=== PATIENT | female | born 1970 | race Caucasian/White ===

== ENCOUNTER 2018-11-21 18:33 | Emergency (ER) | payer OTHER ==
[~2018-11-21] VITALS: Ht 162.6 cm; Wt 86.2 kg
--- OUTSIDE RECORDS SUMMARY | ~2018-11-21 | XMS ---
Demographics + + + | Address | [address] | | | [place] [address] | + + + | Preferred Language | Unknown | + + + | Marital Status | Unknown | + + + | Mandaen Affiliation | Unknown | + + + | Race | Unknown | + + + | Ethnic Group | Unknown | + + + Author + + + | Author | [facility] | + + + | Organization | [facility] | + + + | Address | [address] | | | [place] [address] | + + + | Phone | | + + + Care Team Providers + + + + | Care Convenience Store Manager Name | Role | Phone | + + + + Unavailable | Unavailable | + + + + PROBLEMS + + + + + + + + | Type | Condition | ICD9-CM | SNC27-CY | Onset | Condition | SNOMED | | | | Code | Code | Dates | Status | Code | + + + + + + + + | Problem | Headache | 784.0 | | | Active | 99223667 | + + + + + + + + | Problem | Depressive | 311 | | | Active | 48321416 | | | disorder | | | | | | | | NOS | | | | | | + + + + + + + + | Problem | Insomnia | 780.52 | | | Active | 831375060 | + + + + + + + + | Problem | Depression | 300.4 | | | Active | 822943729 | | | with | | | | | | | | anxiety | | | | | | + + + + + + + + | Problem | Degenerati | 722.4 | | | Active | 21099489 | | | ve disc | | | | | | | | disease, | | | | | | | | cervical | | | | | | + + + + + + + + | Problem | Cervical | 723.4 | | | Active | 85049663 | | | radiculiti | | | | | | | | s | | | | | | + + + + + + + + | Problem | Chronic | 338.4 | | | Active | 110674379 | | | pain | | | | | | | | syndrome | | | | | | + + + + + + + + | Problem | Degenerati | 722.52 | | | Active | 89129556 | | | ve disc | | | | | | | | disease, | | | | | | | | lumbar | | | | | | + + + + + + + + | Problem | Lumbar | 724.4 | | | Active | 716807571 | | | Radiculopa | | | | | | | | thy | | | | | | + + + + + + + + | Assessment | Postoperat | K91.89 | | 15 June, | Active | | | | chico | | | 2017 | | | | | surgical | | | | | | | | complicati | | | | | | | | on | | | | | | | | involving | | | | | | | | digestive | | | | | | | | system | | | | | | + + + + + + + + | Problem | Fatigue | 780.79 | | | Active | 88751273 | + + + + + + + + | Problem | Hyperlipid | 272.4 | | | Active | 64253996 | | | emia NOS | | | | | | + + + + + + + + | Assessment | Status | Z98.84 | | 02 July, | Active | 747786048 | | | post | | | 2016 | | | | | gastric | | | | | | | | banding | | | | | | | | surgery | | | | | | + + + + + + + + | Problem | ROUTINE | V72.31 | | | Active | [id number] | | | DOG POUND ATTENDANT | | | | | 9101 | | | EXAMINATIO | | | | | | | | N | | | | | | + + + + + + + + | Assessment | Encounter | Z48.89 | | 15 June, | Active | | | | for post | | | 2016 | | | | | surgical | | | | | | | | wound | | | | | | | | check | | | | | | + + + + + + + + | Problem | Dizziness | 780.4 | | | Active | [id number] | + + + + + + + + ALLERGIES + + + + +---------+ | Substance | Reaction | Event Type | Date | Status | + + + + +---------+ | N.K.D.A. | Unknown | Non Drug | June, | Unknown | | | | Allergy | | | + + + + +---------+ SOCIAL HISTORY No smoking Hx information available PLAN OF CARE + +---------+ | Activity | Details | + +---------+ +---+ | | +---+ + + + | Pending Test | Aerobe ID + Suscept | + + + | | prn,Reason: | + + + VITAL SIGNS + + + + | Height | 64 in | 2016-07-02 | + + + + | Weight | 259.4 lbs | 2016-07-02 | + + + + | BMI | 44.52 kg/m2 | 2016-07-02 | + + + + | Temperature | 97.9 degrees Fahrenheit | 2016-07-02 | + + + + | Heart Rate | 67 /min | 2016-07-02 | + + + + | Blood pressure systolic | 124 mm Hg | 2016-07-02 | + + + + | Blood pressure diastolic | 86 mm Hg | 2016-07-02 | + + + + MEDICATIONS No Known Medications RESULTS No Results PROCEDURES + + + + + | Procedure | Date Ordered | Related Diagnosis | Body Site | + + + + + | Est Level III | July 02, 2016 | | | | Intermediate | | | | + + + + + | DSCHRG MED/CURRENT | July 02, 2016 | | | | MED MERGE | | | | + + + + + | DOC MEDS VERIFIED | July 02, 2016 | | | | W/PT OR RE | | | | + + + + + IMMUNIZATIONS No Known Immunizations"
--- OUTSIDE RECORDS SUMMARY | ~2018-11-21 | XMS | Clinical Summary ---
Demographics + + + | Address | [address] | | | [place] [address] | + + + | Home Phone | | + + + | Preferred Language | Unknown | + + + | Marital Status | Unknown | + + + | Zoroastrianism Affiliation | Unknown | + + + | Race | Unknown | + + + | Ethnic Group | Unknown | + + + Author + + + | Author | [facility] | | | and [place] | + + + | Organization | [facility] | | | and [place] | + + + | Address | Unknown | + + + | Phone | Unavailable | + + + Support + + +---------+ + | Name | Relationship | Address | Phone | + + +---------+ + | None,Listed | ECON | Unknown | | + + +---------+ + Care Team Providers + +------+ + | Care Official Court Reporter Name | Role | Phone | + +------+ + | Geo Curiel NP | PCP | Unavailable | + +------+ + Allergies Not on File Medications Not on file Active Problems Not on file Social History + +-------+ +--------+------+ | Tobacco Use | Types | Packs/Day | Years | Date | | | | | Used | | + +-------+ +--------+------+ | Never Assessed | | | | | + +-------+ +--------+------+ + + + | Sex Assigned at | Date Recorded | | | | + + + | Not on file | | + + + + + + + | Job Start Date | Occupation | Industry | + + + + | Not on file | Not on file | Not on file | + + + + + + + + | Travel History | Travel Start | Travel End | + + + + + + | No recent travel history available. | + + Last Filed Vital Signs Not on file Plan of Treatment + + + + + | Health Maintenance | Due Date | Last Done | Comments | + + + + + | Vaccine: | | | | | Dtap/Tdap/Td (1 - | 8 | | | | Tdap) | | | | + + + + + | Cervical Cancer | | | | | Screening (Pap) | 9 | | | + + + + + | Breast Cancer | | | | | Screening | 4 | | | + + + + + | Vaccine: Influenza | | | | | (#1) | 9 | | | + + + + + Results Not on filefrom Last 3 Months Insurance + +--------+ +--------+ +---------+------+ | Payer | Benefi | Subscriber | Effect | Phone | Address | Type | | | t Plan | ID | [place] | | | | | | / | | Dates | | | | | | Group | | | | | | + +--------+ +--------+ +---------+------+ | [employer] | PA[employer]RUN[employer] | [id number] | | [phone] | | PPO | | | CSOURC | | 013-Pr | 2 | | | | | E | | esent | | | | | | FIRST | | | | | | | | CHOICE | | | | | | + +--------+ +--------+ +---------+------+ + +--------+ +--------+ + + | Guarantor Name | Accoun | Relation to | Date | Phone | Billing Address | | | t Type | Patient | of | | | | | | | | | | + +--------+ +--------+ + + | Alberta Garcia | Person | Self [birth year] | [address] | | e [place] | al/Fam | | 1970 | [phone] | [place] [address] | | | billy | | | 0 (Home) | | + +--------+ +--------+ + + Advance Directives Patient has advance care planning documents on file. For more information, please contact:[facility] [address]"
--- OUTSIDE RECORDS SUMMARY | ~2018-11-21 | XMS | Clinical Summary ---
Demographics + + + | Address | [address] | | | [place] [address] | + + + | Home Phone | | + + + | Preferred Language | Unknown | + + + | Marital Status | Unknown | + + + | Restorationist Affiliation | Unknown | + + + | Race | Unknown | + + + | Ethnic Group | Unknown | + + + Author + + + | Author | [facility] | | | and [place] | + + + | Organization | [facility] | | | and [place] | + + + | Address | Unknown | + + + | Phone | Unavailable | + + + Support + + +---------+ + | Name | Relationship | Address | Phone | + + +---------+ + | None,Listed | ECON | Unknown | | + + +---------+ + Care Team Providers + +------+ + | Care Hotel Houseman Name | Role | Phone | + [...] +--------+ +---------+------+ | [employer] | PA[employer] | [id number] | | [phone] | | PPO | [...] L | al/Fam | | 1970 | [phone] | [place] [address] | | | billy | | | 0 (Home) | | + +--------+ +--------+ + + Advance Directives Patient has advance care planning documents on file. For more information, please contact:[facility] [place] [address]"
--- OUTSIDE RECORDS SUMMARY | ~2018-11-21 | XMS ---
Demographics + + + | Address | [address] | | | [place] [address] | + + + | Preferred Language | Unknown | + + + | Marital Status | Unknown | + + + | Anglican Affiliation | Unknown | + + + | Race | Unknown | + + + | Ethnic Group | Unknown | + + + Author + + + | Author | [facility] | + + + | Organization | [facility] | + + + | Address | [address] | | | [place] [address] | + + + | Phone | | + + + Care Team Providers + + + + | Care Budder Name | Role | Phone | + + + + Unavailable | Unavailable | + + + + PROBLEMS +---------+ + + +--------+ + + | Type | Condition | ICD9-CM | IMD71-WD | Onset | Condition | SNOMED | | | | Code | Code | Dates | Status | Code | +---------+ + + +--------+ + + | Problem | Headache | 784.0 | | | Active | 44239261 | +---------+ + + +--------+ + + | Problem | Depressive | 311 | | | Active | 76583141 | | | disorder | | | | | | | | NOS | | | | | | +---------+ + + +--------+ + + | Problem | Insomnia | 780.52 | | | Active | 515573816 | +---------+ + + +--------+ + + | Problem | Fatigue | 780.79 | | | Active | 39422869 | +---------+ + + +--------+ + + | Problem | Hyperlipid | 272.4 | | | Active | 61063574 | | | emia NOS | | | | | | +---------+ + + +--------+ + + | Problem | ROUTINE | V72.31 | | | Active | 0935433323 | | | LACER AND TIER | | | | | 9101 | | | EXAMINATIO | | | | | | | | N | | | | | | +---------+ + + +--------+ + + | Problem | Dizziness | 780.4 | | | Active | 357402756 | +---------+ + + +--------+ + + | Problem | Depression | 300.4 | | | Active | 361453986 | | | with | | | | | | | | anxiety | | | | | | +---------+ + + +--------+ + + | Problem | Degenerati | 722.4 | | | Active | 27403655 | | | ve disc | | | | | | | | disease, | | | | | | | | cervical | | | | | | +---------+ + + +--------+ + + | Problem | Cervical | 723.4 | | | Active | 82671512 | | | radiculiti | | | | | | | | s | | | | | | +---------+ + + +--------+ + + | Problem | Chronic | 338.4 | | | Active | 846887652 | | | pain | | | | | | | | syndrome | | | | | | +---------+ + + +--------+ + + | Problem | Degenerati | 722.52 | | | Active | 11867956 | | | ve disc | | | | | | | | disease, | | | | | | | | lumbar | | | | | | +---------+ + + +--------+ + + | Problem | Lumbar | 724.4 | | | Active | 604721095 | | | Radiculopa | | | | | | | | thy | | | | | | +---------+ + + +--------+ + + ALLERGIES Unknown Allergies SOCIAL HISTORY No smoking Hx information available PLAN OF CARE VITAL SIGNS MEDICATIONS + + + + + + + +--------+ | Medicati | Instruct | Dosage | Frequenc | Start | End Date | Duration | Status | | on | ions | | y | Date | | | | + + + + + + + +--------+ | Bactrim | Orally | 1 tablet | 12h | 18 June, | 28 June, | 10 | Active | | DS | Twice a | | | 2017 | 2017 | day(s) | | | 800-160 | day | | | | | | | | MG | | | | | | | | + + + + + + + +--------+ RESULTS No Results PROCEDURES No Known procedures IMMUNIZATIONS No Known Immunizations"
[2018-11-21] MEDS ORDERED: PROGESTERONE100 MG PO (18:51)
[2018-11-21] MEDS ORDERED: FOLGARD TABLET1 EAC1 PO (18:52)
== END 2018-11-21 22:23 | disposition home or self-care (01) ==
LOC: ED 18:33
DX: K52.9 Noninfective gastroenteritis and colitis, unspecified (principal); Z79.899 Other long term (current) drug therapy
CPT/HCPCS: 74177; 80053; 81001; 83690; 85025; 96361; 96374; 96375; 99284-25; J1170; J2405; J7030; Q9967

== ENCOUNTER 2020-05-05 07:48 | Day surgery (SDC) | payer OTHER ==
[~2020-05-05] VITALS: Ht 162.6 cm; Wt 93.0 kg
[~2020-05-05 07:48] MED LIST: FOLGARD TABLET1 EAC1 PO; PROGESTERONE100 MG PO
[2020-05-05] MEDS ORDERED: ESTRACE1 MG PO (08:10)
[2020-05-05] MEDS ORDERED: BIOTIN 800 MCG1 EACH PO (08:11)
[2020-05-05] MEDS ORDERED: OMEPRAZOLE20 MG PO (08:11)
--- NOTE | 2020-05-05 09:29 | NUR ---
05/05/20 0929 Ailyn Pka 0923-PATIENT ARRIVED TO PACU ON 2L NC AWAKE LAYING LEFT LATERAL. DENIES PAIN OR NAUSEA. ABDOMEN SOFT. IVF INFUSING. PATIENT ENCOURAGED TO PASS GAS.
--- NOTE | 2020-05-06 06:33 | OR ---
[facility] [address] [place], [place] [address] Signed DATE OF OPERATION: 05/05/2020 SURGEON: Stephane Pollock MD PREOPERATIVE DIAGNOSIS: Sister with colon polyps at age 52. POSTOPERATIVE DIAGNOSES: 1. 5 mm polyp in mid right colon. 2. 4 mm polyp at 100 cm. 3. Minimal sigmoid diverticulosis. PROCEDURE: Colonoscopy with hot biopsy. ESTIMATED BLOOD LOSS: None. INDICATIONS: Saige is a 50-year-old female asked to see me for a colonoscopy. She explained that her sister just had colonic polyps removed at age 52. She was asked to return by the endoscopist in one year. Zoila herself has no lower GI complaints. No family history of colon cancer to her knowledge. In the office, I gave her a pamphlet on colonoscopy and we reviewed that together along with the risks including, but not limited to gas bloating, crampy abdominal pain, bleeding, perforation requiring surgery, and missed diagnosis. She also understands the need for IV conscious sedation. She had expressed understanding and wished to proceed. PROCEDURE NOTE: Zaria was taken into our endoscopy suite and placed in the left lateral decubitus position. She was given a total of 5 mg of Versed and 175 mcg of fentanyl. A digital rectal exam was performed and this was unremarkable. The adult colonoscope was introduced and advanced all around into the cecum under direct visualization of camera without difficulty. Her prep was good. After her gastric sleeve procedure, she told me she does not drink fluids all that well. She said she has never been want to drink much fluids. Nevertheless, she had a decent bowel prep. We could easily see the appendiceal orifice and the ileocecal valve. The scope was then slowly withdrawn. We took pictures throughout for photodocumentation. She had two tiny polyps removed as above. She has a few diverticula in the sigmoid colon. They were average in size, few in number, and scattered about. The rectum itself was unremarkable. Upon retroflexion of scope, there Electronically Signed By: STEPHANE POLLOCK MD 05/06/20 0633 PATIENT NAME: SAIGE ORNELAS OPERATIVE REPORT DATE OF : 68 REPORT #: [id number] PHYSICIAN: STEPHANE POLLOCK MD PCP: BAYLEE FRANKS REPORT IS CONFIDENTIAL AND NOT TO BE RELEASED WITHOUT AUTHORIZATION [facility] [address] [place] [address] Signed was no additional pathology noted above the anal canal. After this, the gas was suctioned out and the colonoscope removed. Saige tolerated the procedure quite well. RECOMMENDATIONS: I will see Saige back in my office in 7 to 14 days to review her results. More than likely, she will need a 5-year rotation. Stephane Pollock MD ALB/ABBEYL /[id number] cc: LENI Oreilly MD Copies: PAPA MAGALLANES PA-C, ANDREW L MD ~ Electronically Signed By: STEPHANE POLLOCK MD 05/06/20 0633 PATIENT NAME: JOHNSONSAIGE E[place] OPERATIVE REPORT DATE OF : 68 REPORT #: [id number] PHYSICIAN: STEPHANE POLLOCK MD PCP: BAYLEE FRANKS REPORT IS CONFIDENTIAL AND NOT TO BE RELEASED WITHOUT AUTHORIZATION
--- NOTE | 2020-05-06 13:53 | PATH ---
[facility] [address] [place], [place] [address] Signed SPECIMEN(S): A ASCENDING COLON POLYP SPECIMEN(S): B COLON POLYP SPECIMEN SOURCE: A. ASCENDING COLON POLYP B. COLON POLYP CLINICAL HISTORY: Family history of polyps. Screening. MICROSCOPIC DESCRIPTION: Histologic sections of all submitted blocks are examined by light microscopy. These findings, together with the gross examination, support the pathologic diagnosis. FINAL PATHOLOGIC DIAGNOSIS: A. Colon, ascending, polypectomy: - Sessile serrated polyp. B. Colon, polypectomy: - Cauterized fragment of colonic mucosa with no significant pathologic changes. BRP:cml:C2NR GROSS DESCRIPTION: Two specimens are received in two containers, labeled "CW." A. The specimen, labeled "CW, ascending colon polyp," is received in formalin and consists of one wallis soft tissue fragment that measures 0.2 cm in greatest dimension. The specimen is entirely submitted in cassette (A1). B. The specimen, labeled "CW, colon polyp at 100 cm," is received in formalin and consists of two wallis soft tissue fragment(s) that measure 0.2-0.3 cm in greatest dimension. The specimen is entirely submitted in cassette (B1). JS (under the direct supervision of a pathologist) The Gross Description was prepared using a voice recognition system. The report was reviewed for accuracy; however, sound-alike word errors, addition and/or deletions may occur. If there is any question about this report, please contact Client Services. PERFORMING LABORATORY: The technical component was performed by [facility], [address] [place] [id number] (Guest Services Manager: Jocelyn Pablo MD; CLIA# [id number]). PATIENT NAME: SAIGE ORNELAS PATHOLOGY DATE OF : 68 REPORT #: [id number] PHYSICIAN: ROSE MARY PATHOLOGY PCP: BAYLEE FRANKS REPORT IS CONFIDENTIAL AND NOT TO BE RELEASED WITHOUT AUTHORIZATION [facility] [address] [place], [place] [address] Signed Professional interpretation was performed by [facility], [address] [address] (CLIA# [id number]). Diagnostician: Yogi Tamez MD Pathologist Electronically Signed 05/06/2020 Copies: ~ PATIENT NAME: SAIGE ORNELAS PATHOLOGY DATE OF : 68 REPORT #: [id number] PHYSICIAN: ROSE MARY MAY PCP: BAYLEE FRANKS REPORT IS CONFIDENTIAL AND NOT TO BE RELEASED WITHOUT AUTHORIZATION
== END 2020-05-05 09:55 | disposition home or self-care (01) ==
LOC: DS 07:48 → OPS 07:48 → DS 09:00 → OPS 09:00
PROVIDERS: ATTEND Colon & Rectal Surgery
PROC: 0DBF8ZZ Excision of Right Large Intestine, Via Natural or Artificial Opening Endoscopic (ICD-10-PCS; principal; 2020-05-05 09:00)
DX: Z12.11 Encounter for screening for malignant neoplasm of colon (principal); D12.2 Benign neoplasm of ascending colon; K63.5 Polyp of colon; K57.30 Diverticulosis of large intestine without perforation or abscess without bleeding; K21.9 Gastro-esophageal reflux disease without esophagitis; E66.9 Obesity, unspecified; E55.9 Vitamin D deficiency, unspecified; J45.909 Unspecified asthma, uncomplicated; Z83.71 Family history of colonic polyps; Z98.84 Bariatric surgery status; Z68.32 Body mass index [BMI] 32.0-32.9, adult
CPT/HCPCS: 99153; G0500; J2250; J3010; J7121

== ENCOUNTER 2024-04-07 09:14 | Day surgery (SDC) | payer OTHER ==
[~2024-04-07] VITALS: Ht 162.6 cm; Wt 92.1 kg
[~2024-04-07 09:14] MED LIST changes: +ADIPEX-P37.5 M1 PO; +BIOTIN 800 MCG1 EACH PO; +ESTRACE1 MG PO; +IBLOOD GLUCOSE TEST STRIP 1 EA TEST VI PRN; +LACTATED RINGER'S 1,000 ML IV SCH; +LIDOCAINE HCL 1% 5 ML SDV INJ ONE; +MIDAZOLAM HCL 5 MG/5 ML VIAL IV PRN; +MULTIVITAMIN1 EACH PO; +OMEPRAZOLE20 MG PO; +VITAMIN D21250 MCG PO; +fentaNYL citrate 100 MCG/2 ML VIAL IV PRN
[2024-04-07 09:33] VITALS: BP 122/80
[2024-04-07] MEDS ORDERED: OMEPRAZOLE40 MG PO (09:37)
[2024-04-07] MEDS ORDERED: fentaNYL citrate 100 MCG/2 ML VIAL ONE (10:22)
[2024-04-07] MEDS ORDERED: MIDAZOLAM HCL 5 MG/5 ML VIAL ONE (10:22)
--- NOTE | 2024-04-07 11:19 | NUR ---
04/07/24 1119 Eileen,Rebecca 1106 PT ARRIVED TO PACU ON 3L VIA NC, PT WAKES EASILY AND DENIES CONCERNS. VSS. PT EASILY FALLS BACK TO SLEEP, RESP EVEN AND UNLABORED. 1116 O2 TURNED OFF. 1117 MD AT BEDSIDE TALKING TO PT, MD CALLING .
[2024-04-07 11:29] VITALS: BP 137/84
--- NOTE | 2024-04-08 06:18 | OR ---
[facility] [address] [place], [place] [address] Signed DATE OF OPERATION: 04/07/2024 SURGEON: Stephane Pollock MD PREOPERATIVE DIAGNOSES: 1. Gastric sleeve 2017 ([place]). 2. Gastroesophageal reflux disease. 3. Parageusia. 4. Maternal grandfather with gastric cancer at age 62. POSTOPERATIVE DIAGNOSES: 1. Hiatal hernia (33-30 cm). 2. Gastroesophageal junction at 30 cm. 3. Mild diffuse gastritis. 4. Mild distal esophagitis. 5. Normal gastric sleeve anatomy. PROCEDURE: Esophagogastroduodenoscopy with CLOtest and biopsies of the antrum and the gastoesophageal junction. ESTIMATED BLOOD LOSS: None. INDICATIONS: Saige is a 54-year-old obese female, asked to see me for an upper endoscopy. She had a gastric sleeve performed in 2017 in [place]. She said it has been very successful. She lost 100 pounds. She has gained about 20 pounds back. She said she is feeling much better. She is using phentermine to help control her weight. She has had to use Pepcid and omeprazole for acid reflux issues. She says she had acid reflux before the gastric sleeve procedure. She cannot remember having a barium swallow or an upper endoscopy before the gastric sleeve was performed. She is now having parageusia with altered taste in her mouth. Basically, she tells me it tastes like poop. She says she had her tonsils removed previously. She does not complain specifically of her sinuses. Once she lost her weight, she gave up on the CPAP machine. We know that she has a maternal grandfather with gastric cancer at age 62. She has also been to the dentist who is worried that the acid reflux is wearing away the enamel on her teeth. She has no dysphagia. We had sent her for a barium swallow at the end of February 2024. She has the gastric sleeve anatomy with a moderate-sized hiatal hernia. Her esophageal motility was normal. She had severe reflux during the test. In the office, I had given her a Electronically Signed By: STEPHANE POLLOCK MD 04/08/24 0618 PATIENT NAME: SAIGE ORNELAS OPERATIVE REPORT DATE OF : 68 REPORT #: [id number] PHYSICIAN: STEPHANE POLLOCK MD PCP: BAYLEE FRANKS REPORT IS CONFIDENTIAL AND NOT TO BE RELEASED WITHOUT AUTHORIZATION [facility] [address] [place], [place] [address] Signed pamphlet on upper endoscopy. We had reviewed the nature of the test. There is risk including, but not limited to gas bloating, crampy abdominal pain, bleeding, perforation requiring surgery, and missed diagnosis. I have actually helped her with a colonoscopy back in 2020. She did well with 5 mg of Versed and 175 mcg of fentanyl. Thankfully, no laxatives are needed for upper endoscopy. We had her hold the phentermine three days before the procedure. She understands an adult person has to take her home afterwards. She had expressed understanding and wished to proceed. DESCRIPTION OF PROCEDURE: Saige was taken into the endoscopy suite and placed in the supine semi-recumbent position. The posterior oropharynx was anesthetized with lidocaine spray. A bite block was utilized for the case. The adult gastroscope was introduced and advanced under direct visualization of the camera. We went down through her small hiatal hernia down the gastric sleeve and out in the duodenum. She has typical gastric sleeve anatomy. The duodenum and pyloric channel were unremarkable. The antrum remains intact and then she has the sleeve above that. She has some hypertrophied gastric glands from the omeprazole. We saw some diffuse mild erythematous changes throughout the stomach. We went ahead and took a biopsy of the antrum for CLOtest as well as pathologic review. We had just enough room to retroflex the scope and I can see her hiatal hernia. It measured out from 33 cm back to about 30 cm. The GE junction has mild to moderate disruption. She may have some tiny amount of Cool's mucosa there, although it does not have the classic velvet color. We went ahead and took a couple of biopsies of this area for pathologic review. The middle and upper esophagus were unremarkable. After this, the gas was suctioned out and the gastroscope removed. Saige tolerated the procedure quite well. RECOMMENDATIONS: I will see Saige back in my office in 7 to 14 days to review her results. She is already aware that if she fails medical treatment for acid reflux in this situation, she would be converted to gastric bypass. She did not seem interested in that option. MD NICKOLAS Recinos/ABBEYL /[id number] Electronically Signed By: STEPHANE POLLOCK MD 04/08/24 0618 PATIENT NAME: SAIGE ORNELAS BETZY OPERATIVE REPORT DATE OF : 68 REPORT #: [id number] PHYSICIAN: STEPHANE POLLOCK MD PCP: BAYLEE FRANKS REPORT IS CONFIDENTIAL AND NOT TO BE RELEASED WITHOUT AUTHORIZATION [address] [place], [place] [address] Signed cc: ROWENA Bella MD Copies: BAYLEE FRANKS ANDREW L MD ~ Electronically Signed By: STEPHANE POLLOCK MD 04/08/24 0618 PATIENT NAME: SAIGE ORNELAS OPERATIVE REPORT DATE OF : 68 REPORT #: [id number] PHYSICIAN: STEPHANE POLLOCK MD PCP: BAYLEE FRANKS REPORT IS CONFIDENTIAL AND NOT TO BE RELEASED WITHOUT AUTHORIZATION
--- NOTE | 2024-04-09 09:46 | PATH ---
[facility] [address], [place] [address] Signed SPECIMEN(S): A ANTRUM/PYLORUS BIOPSY SPECIMEN(S): B GE JUNCTION BIOPSY SPECIMEN SOURCE: A. ANTRUM/PYLORUS BIOPSY B. GE JUNCTION BIOPSY CLINICAL HISTORY: GERD;parageusia. Hiatal hernia, mild gastritis, distal esophagitis FINAL PATHOLOGIC DIAGNOSIS: A. Stomach, antrum/pylorus, biopsy: - Gastric antral mucosa with no significant pathologic changes - Negative for Helicobacter pylori with HE stains B. Gastroesophageal junction, biopsy: - Squamoglandular mucosa with reactive epithelial changes; negative for intestinal metaplasia BRP MICROSCOPIC EXAMINATION: Histologic sections of all submitted blocks are examined by light microscopy. These findings, together with the gross examination, support the pathologic diagnosis. GROSS DESCRIPTION: A. The specimen, labeled and designated "Weissenfluh, antrum biopsy," is received in formalin and consists of one wallis soft tissue fragment, 0.4 cm. Entirely submitted in (A1). B. The specimen, labeled and designated "Weissenfluh, GE junction biopsy," is received in formalin and consists of three wallis soft tissue fragments, ranging from 0.1-0.4 cm. Entirely submitted in (B1). JS (under the direct supervision of a pathologist) The Gross Description was prepared using a voice recognition system. The report was reviewed for accuracy; however, sound-alike word errors, addition and/or deletions may occur. If there is any question about this report, please contact Client Services. ADDITIONAL NOTES: Immunohistochemical and/or in situ hybridization studies if performed in this case included appropriate positive controls that reacted as expected. This test was developed and its performance PATIENT NAME: SAIGE ORNELAS PATHOLOGY DATE OF : 68 REPORT #: [id number] PHYSICIAN: ROSE MARY MAY PCP: BAYLEE FRANKS REPORT IS CONFIDENTIAL AND NOT TO BE RELEASED WITHOUT AUTHORIZATION [facility] [address], [place] [address] Signed characteristics determined by [facility]. It has not been cleared or approved by the U.S. Food and Drug Administration. The FDA has determined that such clearance or approval is not necessary. This test is used for clinical purposes. It should not be regarded as investigational or for research. [facility] is certified under the Clinical Laboratory Improvement Amendments of 1988 (CLIA) as qualified to perform high complexity clinical laboratory testing. PERFORMING LABORATORY: Technical component was performed [place] [address] (CLIA# [id number]). Professional interpretation was performed by [facility], [address] [place] [address] (CLIA#: [id number]). Diagnostician: Yogi Tamez MD Pathologist Electronically Signed 04/09/2024 Copies: ~ PATIENT NAME: SAIGE ORNELAS PATHOLOGY DATE OF : 68 REPORT #: [id number] PHYSICIAN: ROSE MARY MAY PCP: BAYLEE FRANKS REPORT IS CONFIDENTIAL AND NOT TO BE RELEASED WITHOUT AUTHORIZATION
== END 2024-04-07 11:42 | disposition home or self-care (01) ==
LOC: DS 09:14
PROVIDERS: ATTEND Colon & Rectal Surgery
PROC: 0DB68ZX Excision of Stomach, Via Natural or Artificial Opening Endoscopic, Diagnostic (ICD-10-PCS; 2024-04-07)
PROC: 0DB48ZX Excision of Esophagogastric Junction, Via Natural or Artificial Opening Endoscopic, Diagnostic (ICD-10-PCS; principal; 2024-04-07 10:30)
DX: K21.00 Gastro-esophageal reflux disease with esophagitis, without bleeding (principal); K29.70 Gastritis, unspecified, without bleeding; K44.9 Diaphragmatic hernia without obstruction or gangrene; E66.9 Obesity, unspecified; E78.5 Hyperlipidemia, unspecified; Z79.899 Other long term (current) drug therapy; Z80.0 Family history of malignant neoplasm of digestive organs; Z98.84 Bariatric surgery status; G47.33 Obstructive sleep apnea (adult) (pediatric)
CPT/HCPCS: 36415; 87077; 99153; G0500; J2250; J3010; J7121